=== PATIENT | female | born 1995 | race American Indian/Alaskan Native ===

== ENCOUNTER 2019-03-06 10:07 | Emergency (ER) | payer OTHER ==
[2019-03-06 10:26] VITALS: BP 124/76
[2019-03-06 10:51] LABS: Basophils % (Auto) 0.4 % (0.0-1.8); Eosinophils % (Auto) 0.8 % (0.0-4.3); Hemoglobin 12.5 gm/dl (10.1-14.3); Lymphocytes # (Auto) 1.3 K/mm3 (1.2-5.4); Lymphocytes % (Auto) 25.3 % (13.4-35.0); Mean Corpuscular HGB Conc 34 % (30-34); Mean Corpuscular Volume 97 fl (79-97); Monocytes # (Auto) 0.4 K/mm3 (0.0-0.8); Monocytes % (Auto) 8.2 % (0.0-7.3); Platelet Count 259 K/mm3 (140-440); Red Blood Count 3.81 M/mm3 (3.65-5.03); Red Cell Distribution Width 11.7 % (13.2-15.2)
[2019-03-06 12:45] LABS: Bilirubin,Urine NEG (Negative); Blood,Urine SM (Negative); Color,Urine Yellow (Yellow); Mucus,Urine 1+ /HPF; Protein,Urine <15 mg/dL mg/dL (Negative); Urobilinogen,Urine < 2.0 mg/dL (<2.0); WBC,Urine < 1.0 /HPF (0.0-6.0)
--- NOTE | 2019-03-06 19:45 | Ultrasound Report ---
US OB <= 14 weeks fetus INDICATION / CLINICAL INFORMATION: vaginal bleeding, 7 wks gest. COMPARISON: None available. FINDINGS: Transabdominal imaging was performed. Intrauterine gestational sac is seen with yolk sac and pole. [place]-rump length is 1.4 cm (7 wee ks, 5 days). heart rate is 171. Maternal ovaries are unremarkable. No adnexal lesions. No free fluid. IMPRESSION: 1. Single viable intrauterine with sonographic gestational age of 7 weeks, 5 days. Signer Name: Griffin Odonnell MD Signed: 03/06/2019 7:41 PM Workstation Name: [id number]
--- NOTE | 2019-03-06 21:26 | Emergency Department Report ---
ED HPI - General Chief complaint: Vaginal Bleeding Stated complaint: VAGINAL BLEED (8WKS PREG) Time Seen by Provider: 03/06/19 18:46 Source: patient Mode of arrival: Ambulatory Limitations: No Limitations - History of Present Illness Initial comments: Mr. Aparicio is a 23-year-old [place] female who presents with vaginal spotting and cramping times one week. Patient states she is 8 weeks concern for possible miscarriage. Patient is G1, P0, A0 . pt denies vaginal bleeding at this time. last bleeding 3 days ago described as clots, there is no abd pain at this time. MD Complaint: abdominal pain, vaginal bleeding Onset/Timin -: week(s) Location: abdomen Radiation: LLQ, RLQ, suprapubic Severity: moderate Severity scale (0 -10): 4 Quality: cramping Consistency: intermittent Improves with: none Worsens with: movement Associated symptoms: vaginal bleeding, abdominal pain. denies: nausea/vomiting, vaginal discharge, dysuria, malaise Vaginal bleeding: light (intermittent.) OB History - Current : no complications Last menstrual period: 12/17/18 Pre-brenda care: followed by OB - Related Data : 0 Para: 0 Ab: 0 Previous Rx's Medication Instructions Recorded Last Taken Type Ondansetron [Zofran Odt] 4 mg PO Q8HR PRN #12 tab.rapdis 03/06/19 Unknown Rx Allergies Allergy/AdvReac Type Severity Reaction Status Date / Time acetaminophen [From Percocet] Allergy Hives Verified 03/06/19 10:23 oxycodone [From Percocet] Allergy Hives Verified 03/06/19 10:23 Penicillins Allergy Hives Verified 03/06/19 10:23 pineapple Allergy Hives Verified 03/06/19 10:23 Sulfa (Sulfonamide Allergy Hives Verified 03/06/19 10:23 Antibiotics) ED Review of Systems ROS: Stated complaint: VAGINAL BLEED (8WKS PREG) Other details as noted in HPI Constitutional: denies: chills, fever Eyes: denies: eye pain, eye discharge, vision change ENT: denies: ear pain, throat pain Respiratory: denies: cough, shortness of breath, wheezing Cardiovascular: denies: chest pain, palpitations Endocrine: no symptoms reported Gastrointestinal: abdominal pain. denies: nausea, vomiting, diarrhea, melena Genitourinary: denies: urgency, dysuria, discharge Musculoskeletal: denies: back pain, joint swelling, arthralgia Skin: denies: rash, lesions Neurological: denies: headache, weakness, paresthesias Psychiatric: denies: anxiety, depression Hematological/Lymphatic: denies: easy bleeding, easy bruising ED Past Medical Hx - Past Medical History Previous Medical History?: Yes Additional medical history: mitral valve regurgitation. 1st degree AV block - Surgical History Past Surgical History?: No - Social History Smoking Status: Never Smoker Substance Use Type: None - Medications Home Medications: Home Medications Medication Instructions Recorded Confirmed Last Taken Type Ondansetron [Zofran Odt] 4 mg PO Q8HR PRN #12 tab.rapdis 03/06/19 Unknown Rx ED Physical Exam - General Limitations: No Limitations General appearance: alert, in no apparent distress - Head Head exam: Present: atraumatic, normocephalic - Eye Eye exam: Present: normal appearance, PERRL, EOMI Pupils: Present: normal accommodation - ENT ENT exam: Present: mucous membranes moist - Neck Neck exam: Present: normal inspection - Respiratory Respiratory exam: Present: normal lung sounds bilaterally. Absent: respiratory distress, wheezes, chest wall tenderness - Cardiovascular Cardiovascular Exam: Present: regular rate, normal rhythm, normal heart sounds. Absent: systolic murmur, diastolic murmur, rubs, gallop - GI/Abdominal GI/Abdominal exam: Present: soft, normal bowel sounds. Absent: distended, tenderness, guarding, rebound, rigid, bruit, hernia - Rectal Rectal exam: Present: deferred - Extremities Exam Extremities exam: Present: normal inspection, full ROM, tenderness, normal capillary refill. Absent: pedal edema, joint swelling, calf tenderness - Back Exam Back exam: Present: normal inspection, full ROM. Absent: tenderness, CVA tenderness (R), CVA tenderness (L) - Neurological Exam Neurological exam: Present: alert, oriented X3, CN II-XII intact, normal gait, reflexes normal. Absent: motor sensory deficit - Psychiatric Psychiatric exam: Present: normal affect, normal mood - Skin Skin exam: Present: warm, dry, intact, normal color. Absent: rash ED Course Vital Signs 03/06/19 10:19 Temperature 98.5 F Pulse Rate 85 Respiratory 18 Rate Blood Pressure 124/76 O2 Sat by Pulse 95 Oximetry ED Medical Decision Making - Lab Data Result diagrams: 03/06/19 10:35 Labs 03/06/19 03/06/19 03/06/19 10:35 10:35 10:35 WBC 5.1 RBC 3.81 Hgb 12.5 Hct 37.0 MCV 97 MCH 33 H MCHC 34 RDW 11.7 L Plt Count 259 Lymph % (Auto) 25.3 [place] % (Auto) 8.2 H Eos % (Auto) 0.8 Baso % (Auto) 0.4 Lymph # 1.3 [place] # 0.4 Eos # 0.0 Baso # 0.0 Seg Neutrophils % 65.3 Seg Neutrophils # 3.3 HCG, Quant 470006 H Urine Color Urine Turbidity Urine pH Ur Specific [place] Urine Protein Urine Glucose (UA) Urine Ketones Urine Blood Urine Nitrite Urine Bilirubin Urine Urobilinogen Ur Leukocyte Esterase Urine WBC (Auto) Urine RBC (Auto) U Epithel Cells (Auto) Urine Mucus Blood Type B POSITIVE 03/06/19 12:18 WBC RBC Hgb Hct MCV MCH MCHC RDW Plt Count Lymph % (Auto) [place] % (Auto) Eos % (Auto) Baso % (Auto) Lymph # [place] # Eos # Baso # Seg Neutrophils % Seg Neutrophils # HCG, Quant Urine Color Yellow Urine Turbidity Clear Urine pH 7.0 Ur Specific [place] 1.020 Urine Protein <15 mg/dl Urine Glucose (UA) Neg Urine Ketones Neg Urine Blood Sm Urine Nitrite Neg Urine Bilirubin Neg Urine Urobilinogen < 2.0 Ur Leukocyte Esterase Neg Urine WBC (Auto) < 1.0 Urine RBC (Auto) 1.0 U Epithel Cells (Auto) 1.0 Urine Mucus 1+ Blood Type - Radiology Data Radiology results: report reviewed, image reviewed Ordering Physician: JASON ALVAREZ Date of Service: 03/06/19 Procedure(s): US OB <= 14 weeks fetus Accession Number(s): [id number] cc: JASON ALVAREZ US OB <= 14 weeks fetus INDICATION / CLINICAL INFORMATION: vaginal bleeding, 7 wks gest. COMPARISON: None available. FINDINGS: Transabdominal imaging was performed. Intrauterine gestational sac is seen with yolk sac and pole. [place]-rump length is 1.4 cm (7 weeks, 5 days). heart rate is 171. Maternal ovaries are unremarkable. No adnexal lesions. No free fluid. IMPRESSION: 1. Single viable intrauterine with sonographic gestational age of 7 weeks, 5 days. Signer Name: Griffin Odonnell MD Signed: 03/06/2019 7:41 PM Workstation Name: [id number] Transcribed By: SARAH Dictated By: Griffin Odonnell MD Electronically Authenticated By: Griffin Odonnell MD Signed Date/Time: 03/06/191940 DD/ 38 TD/TT: - Medical Decision Making US OB Single IUP, 7 weeks and 5 days, FHR: 171 bpm, plan follow up with OBGYN in 2-3 days Critical care attestation.: If time is entered above; I have spent that time in minutes in the direct care of this critically ill patient, excluding procedure time. ED Disposition Clinical Impression: Abdominal pain during in first trimester Qualifiers: Weeks of gestation: less than 8 weeks Qualified Code(s): Z3A.01 - Less than 8 weeks gestation of Disposition: DC-01 TO HOME OR SELFCARE Is pt being admited?: No Does the pt Need Aspirin: No Condition: Stable Additional Instructions: 7 weeks, 5 Days , FHR: 171 bpm. Prescriptions: Ondansetron [Zofran Odt] 4 mg PO Q8HR PRN #12 tab.rapdis PRN Reason: Nausea Referrals: EARLENE RAYMOND MD [Staff Physician] - 3-5 Days Forms: Work/School Release Form(ED) Time of Disposition: 21:23
== END 2019-03-06 21:35 | disposition home or self-care (01) ==
LOC: ED 10:07
DX: O26.891 Other specified pregnancy related conditions, first trimester (principal); R10.9 Unspecified abdominal pain; Z3A.01 Less than 8 weeks gestation of pregnancy; Z79.899 Other long term (current) drug therapy; Z88.0 Allergy status to penicillin; Z88.2 Allergy status to sulfonamides; Z91.018 Allergy to other foods; Z88.8 Allergy status to other drugs, medicaments and biological substances
CPT/HCPCS: 36415; 76801; 81001; 84702; 85025; 86900; 86901